=== PATIENT | female | born 1955 | race Caucasian/White ===

== ENCOUNTER 2022-12-12 03:50 | Day surgery (SDC) | payer BC ==
[2022-12-09 12:21] VITALS: BMI 39.3
[2022-12-12] MEDS ORDERED: GABAPENTIN 300 MG CAPSULE ONE (06:50)
[2022-12-12] MEDS ORDERED: ceFAZolin SODIUM 1 GM VIAL ONE ×2 (06:51→07:45)
[2022-12-12] MEDS ORDERED: PHENAZOPYRIDINE HCL 100 MG TABLET (FP) ONE (06:51)
[2022-12-12] MEDS ORDERED: PHENAZOPYRIDINE HCL 100 MG TABLET (FP) PO ONE ×2 (06:55→07:30)
[2022-12-12] MEDS ORDERED: GABAPENTIN 300 MG CAPSULE PO ONE ×2 (06:55→07:30)
[2022-12-12] MEDS ORDERED: ACETAMINOPHEN 1000 MG/100 ML BAG IVPB ONE (07:30)
[2022-12-12] MEDS ORDERED: TRANEXAMIC ACID 1000 MG/10 ML VIAL IVPUSH ONE (07:30)
[2022-12-12] MEDS ORDERED: CEFAZOLIN 2 GM in DEXTROSE 5%-WATER - 100 ML IVPB ONE (07:30)
[2022-12-12] MEDS ORDERED: ROCURONIUM BROMIDE 50 MG/5 ML SYRINGE ONE (07:45)
[2022-12-12] MEDS ORDERED: ONDANSETRON 4 MG/2 ML VIAL ONE ×2 (07:45→11:25)
[2022-12-12] MEDS ORDERED: DEXAMETHASONE SOD PHOSPHATE 4 MG/1 ML VIAL ONE (07:45)
[2022-12-12] MEDS ORDERED: KETOROLAC TROMETHAMINE 30 MG/1 ML VIAL ONE ×2 (07:45→10:04)
[2022-12-12] MEDS ORDERED: MIDAZOLAM HCL 2 MG/2 ML SINGLE DOSE VIAL ONE (07:46)
[2022-12-12] MEDS ORDERED: PROPOFOL 20 ML ONE (07:46)
[2022-12-12] MEDS ORDERED: ceFAZolin SODIUM 1 GM VIAL IVPB ONE (08:18)
[2022-12-12] MEDS ORDERED: NEOSTIGMINE METHYLSULFATE 0.5 MG/1 ML - 10 ML MDV ONE (10:05)
[2022-12-12] MEDS ORDERED: GLYCOPYRROLATE 0.2 MG/1 ML VIAL ONE ×2 (10:05)
[2022-12-12] MEDS ORDERED: ONDANSETRON 4 MG/2 ML VIAL IVPUSH PRN (10:36)
[2022-12-12] MEDS ORDERED: HYDROmorphone *PCA* 10MG/50ML DISP.SYRIN PCA SCH (10:45)
[2022-12-12] MEDS ORDERED: ACETAMINOPHEN INJECTION 100 ML IVPB ONE (11:12)
[2022-12-12] MEDS: ACETAMINOPHEN 1000 MG/100 ML BAG IVPB SCH ×3 (11:15→21:56)
[2022-12-12] MEDS ORDERED: HYDROmorphone *PCA* 10MG/50ML DISP.SYRIN ONE (11:56)
[2022-12-12] MEDS: LACTATED RINGERS SOLUTION 1,000 ML IV SCH (12:00)
[2022-12-12] MEDS ORDERED: ALBUTEROL SO4 0.083% IH SOL 2.5 MG/3 ML VIAL.NEB. NEB ONE (13:15)
[2022-12-12 14:53] VITALS: RESP 18
[2022-12-12] MEDS: CEFAZOLIN 2 GM in DEXTROSE 5%-WATER 100 ML IVPB SCH (17:17)
[2022-12-13] MEDS: CEFAZOLIN 2 GM in DEXTROSE 5%-WATER 100 ML IVPB SCH (01:24)
[2022-12-13] MEDS: LACTATED RINGERS SOLUTION 1,000 ML IV SCH (01:30)
[2022-12-13] MEDS: ACETAMINOPHEN 1000 MG/100 ML BAG IVPB SCH ×2 (03:48→10:08)
[2022-12-13] MEDS ORDERED: ROSUVASTATIN CA 5 MG TABLET PO SCH (10:00)
[2022-12-13] MEDS ORDERED: ENOXAPARIN NA (PORCINE) 40 MG/0.4 ML DISP.SYRIN SQ SCH (10:00)
[2022-12-13] MEDS ORDERED: ENALAPRIL MALEATE 5 MG TABLET PO SCH (10:00)
[2022-12-13] MEDS ORDERED: PATIENT'S OWN MEDICATION (NON-FORMULARY) (Aspirin [Vazalore] 81 MG Capsule) PO SCH (10:00)
[2022-12-13 11:12] VITALS: BP 128/58; PULSE 69; TEMP 98.3
== END 2022-12-13 12:21 | disposition home or self-care (01) ==
LOC: JASUSAT 03:50 → J7W 14:29 → JASUSAT 12-13 12:21
PROVIDERS: ATTEND Obstetrics & Gynecology
PROC: 0UT74ZZ Resection of Bilateral Fallopian Tubes, Percutaneous Endoscopic Approach (ICD-10-PCS; 2022-12-12)
PROC: 8E0W4CZ Robotic Assisted Procedure of Trunk Region, Percutaneous Endoscopic Approach (ICD-10-PCS; 2022-12-12)
PROC: 0UT94ZZ Resection of Uterus, Percutaneous Endoscopic Approach (ICD-10-PCS; principal; 2022-12-12 07:30)
PROC: 0UB24ZZ Excision of Bilateral Ovaries, Percutaneous Endoscopic Approach (ICD-10-PCS; 2022-12-12 07:30)
DX: N95.0 Postmenopausal bleeding (principal); N80.03 Adenomyosis of the uterus
CPT/HCPCS: 58571; S2900; 86850; 86900; 86901; 86922; 88305-TC; 94760